=== PATIENT | female | born 1980 | race Caucasian/White ===

== ENCOUNTER → 2016-12-24 | Outpatient (CLI) | payer MEDICAID ==
--- NOTE | 2016-12-24 11:53 | MR ---
EXAMINATION TYPE: MR knee LT wo con DATE OF EXAM: 12/24/2016 9:45 AM COMPARISON: NONE HISTORY: pain in lt knee TECHNIQUE: Multiplanar, multisequence imaging of the left knee is performed without IV contrast. FINDINGS: MEDIAL MENISCUS: Some increased signal in the posterior horn of the medial meniscus compatible with m ucoid degeneration, no definite tear LATERAL MENISCUS: Anterior and posterior horns are intact without tear. CRUCIATE LIGAMENTS: The anterior and posterior cruciate ligaments are intact and unremarkable. COLLATERAL LIGAMENTS: The medial collateral ligament and lateral collateral ligament complex are inta ct and unremarkable. EXTENSOR MECHANISM: Visualized quadriceps and patellar tendons are intact. EFFUSION: No significant suprapatellar joint effusion. POPLITEAL CYST: No popliteal/chavarria cyst. TRICOMPARTMENT SPACES: Within normal limits. CARTILAGE: Intact BONE MARROW SIGNAL: Some minimal marrow edema present in the medial femoral condyle posteriorly and m edially OTHER: There is some increased signal at the origin of the gastrocnemius tendon medial belly, at [address] a partial full-thickness tear is suspected, there is no retraction. Some varicosities noted within the subcutaneous fat laterally and posteriorly IMPRESSION: Partial full-thickness tear origin of the medial belly of the gastrocnemius.
== END | disposition home or self-care (01) ==
LOC: RADMRIMAIN 09:09
PROVIDERS: ATTEND Physician Assistant
DX: S83.242A Other tear of medial meniscus, current injury, left knee, initial encounter (principal)

== ENCOUNTER → 2017-05-08 | Outpatient (CLI) | payer OTHER ==
--- NOTE | 2017-05-08 12:51 | XR ---
EXAMINATION TYPE: XR lumbar spine 2 or 3V DATE OF EXAM: 05/08/2017 CLINICAL HISTORY: Low back pain after lifting patient. TECHNIQUE: Frontal and lateral images of the lumbar spine are obtained. COMPARISON: None FINDINGS: There are 5 lumbar type vertebral bodies identified. The lumbar spine shows satisfactory alignment without evidence of acute fracture or dislocation. Vertebral body heights and disk space he ights are within normal limits. Mild anterior spurring lower lumbar levels is present. The overlying soft tissue appears unremarkable. IMPRESSION: No acute fracture or dislocation is seen in the lumbar spine.
== END | disposition home or self-care (01) ==
LOC: RADXRMAIN 11:46
PROVIDERS: ATTEND Emergency Medicine
DX: M54.5 Low back pain (principal)
CPT/HCPCS: 72100

== ENCOUNTER 2017-05-12 05:53 | Emergency (ER) | payer OTHER, MEDICAID ==
[2017-05-12 05:59] VITALS: BP 104/72; PULSE 102; RESP 20; TEMP 98
[2017-05-12] MEDS ORDERED: DEXAMETHASONE SOD PHOSPHATE 10 MG/ML 1 ML VIAL IM STA (06:37)
--- NOTE | 2017-05-12 06:37 | ED ---
General Adult HPI - General Chief complaint: Back Pain/Injury Stated complaint: back pain,leg numbness [facility] Time Seen by Provider: 05/12/17 06:00 Source: patient Mode of arrival: ambulatory Limitations: no limitations - Related Data Home Medications Medication Instructions Recorded Confirmed Cyclobenzaprine [Flexeril] 5 mg PO HS 05/12/17 05/12/17 Etodolac [Lodine] 400 mg PO TID 05/12/17 05/12/17 Allergies Allergy/AdvReac Type Severity Reaction Status Date / Time Sulfa (Sulfonamide Allergy Nausea & Verified 05/12/17 05:59 Antibiotics) Vomiting Review of Systems ROS Statement: Those systems with pertinent positive or pertinent negative responses have been documented in the HPI. ROS Other: All systems not noted in ROS Statement are negative. Past Medical History Past Medical History: No Reported History History of Any Multi-Drug Resistant Organisms: None Reported Past Surgical History: Adenoidectomy, Tonsillectomy, Tubal Ligation, Uterine Ablation Past Psychological History: No Psychological Hx Reported Smoking Status: Current every day smoker Past Alcohol Use History: None Reported Past Drug Use History: None Reported General Exam Limitations: no limitations Course Vital Signs 05/12/17 05:56 Temperature 98 F Pulse Rate 102 H Respiratory 20 Rate Blood Pressure 104/72 O2 Sat by Pulse 100 Oximetry Disposition Clinical Impression: Sciatica, Strain of lumbar region, Mechanical back pain Disposition: HOME SELF-CARE Condition: Good Instructions: Acute Low Back Pain (ED) Referrals: Jefry Florez MD [Primary Care Provider] - 1-2 days
--- NOTE | 2017-05-15 05:22 | CDI ---
Documentation Clarification OP Dear Dr. Jefry Kumar Please do addendum to ED report for missing HPI and Physical examination. Thank you, Alize Wei [employer] If you have any questions, please contact Gang Tailer at [phone] [facility]
== END 2017-05-12 06:44 | disposition home or self-care (01) ==
LOC: EC 05:53
DX: S39.012A Strain of muscle, fascia and tendon of lower back, initial encounter (principal); M54.30 Sciatica, unspecified side; G89.29 Other chronic pain; F17.200 Nicotine dependence, unspecified, uncomplicated; Z79.899 Other long term (current) drug therapy; Z88.2 Allergy status to sulfonamides
CPT/HCPCS: 99283; 96372; J1100

== ENCOUNTER → 2017-05-13 | Outpatient (CLI) | payer OTHER ==
--- NOTE | 2017-05-13 13:49 | XR ---
EXAMINATION TYPE: XR Hip Complete RT DATE OF EXAM: 05/13/2017 CLINICAL HISTORY: pain TECHNIQUE: AP and frogleg views of the right hip are obtained. COMPARISON: None. FINDINGS: There is no acute fracture/dislocation evident. The joint space appears within normal li mits. The overlying soft tissue appears unremarkable. IMPRESSION: 1. There is no acute fracture or dislocation. ICD 10 NO FRACTURE, INITIAL EVALUATION
== END ==
LOC: RADXRMAIN 13:29
PROVIDERS: ATTEND Emergency Medicine
DX: M25.551 Pain in right hip (principal)
CPT/HCPCS: 73502